=== PATIENT | female | born 1995 | race Caucasian/White ===

== ENCOUNTER 2024-05-16 15:36 | Emergency (ER) | payer OTHER ==
[2024-05-16 15:53] VITALS: RESP 16
--- NOTE | 2024-05-16 16:04 | ED ---
Nausea/Vomiting/Diarrhea HPI - General Chief complaint: Nausea/Vomiting/Diarrhea Stated complaint: NVD/27 Weeks Time Seen by Provider: 05/16/24 15:57 Source: patient, RN notes reviewed Mode of arrival: ambulatory Limitations: no limitations - History of Present Illness Initial comments: This is a 28-year-old female [id number] female at 27 weeks gestation presenting to the emergency department for complaint of nausea, vomiting, diarrhea over the past 16 hours. Patient states that symptoms started at 12:00 this morning and is concerned that she may be dehydrated. Endorses chills with no reported fevers. Denies vaginal bleeding, discharge, dysuria, hematuria, flank pain, cough, rhinorrhea, congestion, shortness of breath, heart palpitations, chest pa in. 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 She denies hematochezia, melena, mucus stools, hematemesis. - Related Data Previous Rx's Medication Instructions Recorded Erythromycin Ophth Oint [Romycin 1 applic RIGHT EYE TID #1 tube 03/05/15 Ophth Oint] Allergies Allergy/AdvReac Type Severity Reaction Status Date / Time butorphanol [From Stadol] Allergy Unknown Verified 05/16/24 15:53 Review of Systems ROS Statement: Those systems with pertinent positive or pertinent negative responses have been documented in the HPI. ROS Other: All systems not noted in ROS Statement are negative. Past Medical History Past Medical History: No Reported History History of Any Multi-Drug Resistant Organisms: None Reported Past Surgical History: No Surgical Hx Reported Past Psychological History: No Psychological Hx Reported Smoking Status: Never smoker Past Alcohol Use History: None Reported Past Drug Use History: None Reported General Exam Limitations: no limitations Respiratory exam: Present: normal lung sounds bilaterally. Absent: respiratory distress, wheezes, rales, rhonchi, stridor Cardiovascular Exam: Present: regular rate, normal rhythm, normal heart sounds. Absent: systolic murmur, diastolic murmur, rubs, gallop, clicks GI/Abdominal exam: Present: soft, normal bowel sounds. Absent: distended, tenderness, guarding, rebound, rigid Extremities exam: Present: normal inspection, full ROM, normal capillary refill. Absent: tenderness, pedal edema, joint swelling, calf tenderness Back exam: Present: normal inspection Course Vital Signs 05/16/24 05/16/24 15:51 18:13 Temperature 98.4 F 98.9 F Pulse Rate 116 H 95 Respiratory 16 16 Rate Blood Pressure 133/94 130/80 O2 Sat by Pulse 97 99 Oximetry Medical Decision Making - Medical Decision Making Was pt. sent in by a medical professional or institution (, [facility], MACHINE PRESSER, urgent care, hospital, or assisted...) When possible be specific @ -No Did you speak to anyone other than the patient for history (EMS, parent, family, police, friend...)? What history was obtained from this source @ -No Did you review nursing and triage notes (agree or disagree)? Why? @ -I reviewed and agree with nursing and triage notes Were old charts reviewed (outside hosp., previous admission, EMS record, old EKG, old radiological studies, urgent care reports/EKG's, assisted records)? Report findings @ -No old charts were reviewed Differential Diagnosis (chest pain, altered mental status, abdominal pain women, abdominal pain men, vaginal bleeding, weakness, fever, dyspnea, syncope, headache, dizziness, GI bleed, back pain, seizure, CVA, palpatations, mental health, musculoskeletal)? @ -Differential Abdominal Pain Women: Appendicitis, Cholecystitis, diverticulosis, ischemic bowel, pancreatitis, hepatitis, UTI, gastroenteritis, AAA, incarcerated hernia, bowel obstruction, constipation, inflammatory bowel, hepatitis, peptic ulcer disease, splenic infarction, perforated viscus, vulvitis, ovarian torsion, PID, kidney stone, placenta abruption, this is not meant to be an all-inclusive list EKG interpreted by me (3pts min.). @ -none X-rays interpreted by me (1pt min.). @ -None done CT interpreted by me (1pt min.). @ -None done U/S interpreted by me (1pt. min.). @ -None done What testing was considered but not performed or refused? (CT, X-rays, U/S, labs)? Why? @ -None What meds were considered but not given or refused? Why? @ -None Did you discuss the management of the patient with other professionals (professionals i.e. [facility] Restrepo, MACHINE PRESSER, lab, RT, psych nurse, social work instructor, rehab aid, teacher, diplomatic officer, supervisor case loading)? Give summary @ -No Was smoking cessation discussed for >3mins.? @ -No Was critical care preformed (if so, how long)? @ -No Were there social determinants of health that impacted care today? How? (Homelessness, low income, unemployed, alcoholism, drug addiction, transportation, low edu. Level, literacy, decrease access to med. care, correction, rehab)? @ -No Was there de-escalation of care discussed even if they declined (Discuss DNR or withdrawal of care, Hospice)? DNR status @ -No What co-morbidities impacted this encounter? (DM, HTN, Smoking, COPD, CAD, Cancer, CVA, ARF, Chemo, Hep., AIDS, mental health diagnosis, sleep apnea, morbid obesity)? @ -None Was patient admitted / discharged? Hospital course, mention meds given and route, prescriptions, significant lab abnormalities, going to OR and other pertinent info. @ -Discharge. 28-year-old female presenting at 27 weeks gestation with nausea, vomiting, diarrhea. My evaluation the patient is resting company no signs acute distress. Vital stable. She is nontoxic and well-appearing. She is offered antiemetics and was declined. She is provided with 1500 mL fluids pending labs. There is leukocytosis 16.1 likely reactive secondary to episodes of emesis and diarrhea. Urinalysis markable for 4+ ketones consistent with dehydration however no signs of infection with 18 epithelial cells consistent with lamination rather than infection. Viral testing is negative. On reevaluation after fluids patient states that she is feeling well and is again declined antiemetics. Recommend that patient follow liquid diet and increase fluids follow-up as scheduled with OB for further evaluation. Case discussed with Dr. Hancock Undiagnosed new problem with uncertain prognosis? @ -No Drug Therapy requiring intensive monitoring for toxicity (Heparin, Nitro, Insulin, Cardizem)? @ -No Were any procedures done? @ -No Diagnosis/symptom? @ -Nausea, vomiting, diarrhea, dehydration Acute, or Chronic, or Acute on Chronic? @ -Acute Uncomplicated (without systemic symptoms) or Complicated (systemic symptoms)? @ -Uncomplicated Side effects of treatment? @ -No Exacerbation, Progression, or Severe Exacerbation? @ -No Poses a threat to life or bodily function? How? (Chest pain, [place], [place], pneumonia, PE, COPD, DKA, ARF, appy, cholecystitis, CVA, Diverticulitis, Homicidal, Suicidal, threat to staff... and all critical care pts) @ -No - Lab Data Result diagrams: 05/16/24 16:40 05/16/24 16:40 Lab Results 05/16/24 05/16/24 05/16/24 Range/Units 16:40 16:40 16:40 WBC 16.1 H (3.8-10.6) k/uL RBC 3.86 (3.80-5.40) m/uL Hgb 12.2 (11.4-16.0) gm/dL Hct 35.4 (34.0-46.0) % MCV 91.7 (80.0-100.0) fL MCH 31.6 (25.0-35.0) pg MCHC 34.4 (31.0-37.0) g/dL RDW 13.1 (11.5-15.5) % Plt Count 360 (150-450) k/uL MPV 7.2 Neutrophils % 86 % Lymphocytes % 7 % Monocytes % 5 % Eosinophils % 1 % Basophils % 0 % Neutrophils # 13.9 H (1.3-7.7) k/uL Lymphocytes # 1.1 (1.0-4.8) k/uL Monocytes # 0.8 (0-1.0) k/uL Eosinophils # 0.1 (0-0.7) k/uL Basophils # 0.0 (0-0.2) k/uL Sodium 134 L (137-145) mmol/L Potassium 3.4 L (3.5-5.1) mmol/L Chloride 100 (98-107) mmol/L Carbon Dioxide 23 (22-30) mmol/L Anion Gap 11 mmol/L BUN 8 (7-17) mg/dL Creatinine 0.66 (0.52-1.04) mg/dL Est GFR (CKD-EPI)AfAm >90 (>60 ml/min/1.73 sqM) Est GFR (CKD-EPI)NonAf >90 (>60 ml/min/1.73 sqM) Glucose 90 (74-99) mg/dL Calcium 8.8 (8.4-10.2) mg/dL Total Bilirubin 0.5 (0.2-1.3) mg/dL AST 20 (14-36) U/L ALT 14 (4-34) U/L Alkaline Phosphatase 115 (38-126) U/L Total Protein 6.9 (6.3-8.2) g/dL Albumin 3.7 (3.5-5.0) g/dL Urine Color Urine Appearance (Clear) Urine pH (5.0-8.0) Ur Specific [place] (1.001-1.035) Urine Protein (Negative) Urine Glucose (UA) (Negative) Urine Ketones (Negative) Urine Blood (Negative) Urine Nitrite (Negative) Urine Bilirubin (Negative) Urine Urobilinogen (<2.0) mg/dL Ur Leukocyte Esterase (Negative) Urine RBC (0-5) /hpf Urine WBC (0-5) /hpf Ur Squamous Epith Cells (0-4) /hpf Urine Bacteria (None) /hpf Hyaline Casts (0-2) /lpf Urine Mucus (None) /hpf Influenza Type A (PCR) Not Detected (Not Detectd) Influenza Type B (PCR) Not Detected (Not Detectd) RSV (PCR) Not Detected (Not Detectd) SARS-CoV-2 (PCR) Not Detected (Not Detectd) 05/16/24 Range/Units 17:14 WBC (3.8-10.6) k/uL RBC (3.80-5.40) m/uL Hgb (11.4-16.0) gm/dL Hct (34.0-46.0) % MCV (80.0-100.0) fL MCH (25.0-35.0) pg MCHC (31.0-37.0) g/dL RDW (11.5-15.5) % Plt Count (150-450) k/uL MPV Neutrophils % % Lymphocytes % % Monocytes % % Eosinophils % % Basophils % % Neutrophils # (1.3-7.7) k/uL Lymphocytes # (1.0-4.8) k/uL Monocytes # (0-1.0) k/uL Eosinophils # (0-0.7) k/uL Basophils # (0-0.2) k/uL Sodium (137-145) mmol/L Potassium (3.5-5.1) mmol/L Chloride (98-107) mmol/L Carbon Dioxide (22-30) mmol/L Anion Gap mmol/L BUN (7-17) mg/dL Creatinine (0.52-1.04) mg/dL Est GFR (CKD-EPI)AfAm (>60 ml/min/1.73 sqM) Est GFR (CKD-EPI)NonAf (>60 ml/min/1.73 sqM) Glucose (74-99) mg/dL Calcium (8.4-10.2) mg/dL Total Bilirubin (0.2-1.3) mg/dL AST (14-36) U/L ALT (4-34) U/L Alkaline Phosphatase (38-126) U/L Total Protein (6.3-8.2) g/dL Albumin (3.5-5.0) g/dL Urine Color Yellow Urine Appearance Cloudy H (Clear) Urine pH 6.5 (5.0-8.0) Ur Specific [place] 1.026 (1.001-1.035) Urine Protein 1+ H (Negative) Urine Glucose (UA) Negative (Negative) Urine Ketones 4+ H (Negative) Urine Blood Negative (Negative) Urine Nitrite Negative (Negative) Urine Bilirubin Negative (Negative) Urine Urobilinogen <2.0 (<2.0) mg/dL Ur Leukocyte Esterase Small H (Negative) Urine RBC 2 (0-5) /hpf Urine WBC 11 H (0-5) /hpf Ur Squamous Epith Cells 18 H (0-4) /hpf Urine Bacteria Many H (None) /hpf Hyaline Casts 1 (0-2) /lpf Urine Mucus Few H (None) /hpf Influenza Type A (PCR) (Not Detectd) Influenza Type B (PCR) (Not Detectd) RSV (PCR) (Not Detectd) SARS-CoV-2 (PCR) (Not Detectd) Disposition Clinical Impression: Gastroenteritis Disposition: HOME SELF-CARE Condition: Good Instructions (If sedation given, give patient instructions): Gastroenteritis (ED) Additional Instructions: Please return to the Emergency Department if symptoms worsen or any other concerns. Is patient prescribed a controlled substance at d/c from ED?: No Referrals: Sarabjit Duque MD [Primary Care Provider] - 1-2 days Time of Disposition: 17:59
[2024-05-16] MEDS: SODIUM CHLORIDE 0.9% 1,500 ML IV STA (16:31)
[2024-05-16 17:03] LABS: Basophils % (A) 0 %; Eosinophils # (A) 0.1 k/uL (0-0.7); Eosinophils % (A) 1 %; HCT 35.4 % (34.0-46.0); HGB 12.2 gm/dL (11.4-16.0); Lymphocytes # (A) 1.1 k/uL (1.0-4.8); Lymphocytes % (A) 7 %; MCH 31.6 pg (25.0-35.0); MCHC 34.4 g/dL (31.0-37.0); MCV 91.7 fL (80.0-100.0); Mean Platelet Volume 7.2; Monocytes # (A) 0.8 k/uL (0-1.0); Monocytes % (A) 5 %; Neutrophils # (A) 13.9 k/uL (1.3-7.7); Neutrophils % (A) 86 %; Platelet Count 360 k/uL (150-450); RBC 3.86 m/uL (3.80-5.40); RDW 13.1 % (11.5-15.5); WBC 16.1 k/uL (3.8-10.6)
[2024-05-16 17:10] LABS: ALT 14 U/L (4-34); AST 20 U/L (14-36); African American GFR (CKD) >90 (>60 ml/min/1.73 sqM); Albumin 3.7 g/dL (3.5-5.0); Alkaline Phosphatase 115 U/L (38-126); Anion Gap 11 mmol/L; Blood Urea Nitrogen 8 mg/dL (7-17); Calcium 8.8 mg/dL (8.4-10.2); Carbon Dioxide 23 mmol/L (22-30); Chloride 100 mmol/L (98-107); Glucose 90 mg/dL (74-99); Non-African American GFR(CKD) >90 (>60 ml/min/1.73 sqM); Potassium 3.4 mmol/L (3.5-5.1); Sodium 134 mmol/L (137-145); Total Bilirubin 0.5 mg/dL (0.2-1.3); Total Protein 6.9 g/dL (6.3-8.2)
[2024-05-16 17:31] LABS: Appearance,Urine Cloudy (Clear); Bacteria,Urine Many /hpf; Bilirubin,Urine Negative (Negative); Blood,Urine Negative (Negative); Color,Urine Yellow; Glucose,Urine (UA) Negative (Negative); Hyaline Casts,Urine 1 /lpf (0-2); Ketones,Urine 4+ (Negative); Leukocyte Esterase,Urine Small (Negative); Mucus,Urine Few /hpf; Nitrite,Urine Negative (Negative); PH, Urine 6.5 (5.0-8.0); Protein,Urine 1+ (Negative); RBC,Urine 2 /hpf (0-5); Specific Gravity,Urine 1.026 (1.001-1.035); Squamous Epithelial Cell,Urine 18 /hpf (0-4); Urobilinogen,Urine <2.0 mg/dL (<2.0); WBC,Urine 11 /hpf (0-5)
[2024-05-16 17:38] LABS: Influenza A Not Detected (Not Detectd); Influenza B Not Detected (Not Detectd); RSV Not Detected (Not Detectd)
[2024-05-16 18:14] VITALS: BP 130/80; PULSE 95; TEMP 98.9
== END 2024-05-16 18:14 | disposition home or self-care (01) ==
LOC: EC 15:36
DX: O99.612 Diseases of the digestive system complicating pregnancy, second trimester (principal); K52.9 Noninfective gastroenteritis and colitis, unspecified; O21.2 Late vomiting of pregnancy; Z88.8 Allergy status to other drugs, medicaments and biological substances; Z3A.27 27 weeks gestation of pregnancy; Z11.52 Encounter for screening for COVID-19
CPT/HCPCS: 36415; 80053; 81001; 85025; 87636; 96360; 99283

== ENCOUNTER 2024-07-24 09:24 | Outpatient (CLI) | payer OTHER ==
[2024-07-24 10:25] VITALS: BP 126/79; PULSE 94; RESP 18; TEMP 96.3
--- NOTE | 2024-08-06 20:42 | P.MSEPDOC ---
Presenting Problems - Arrival Data Date of Arrival on Unit: 07/24/24 Time of Arrival on Unit: 09:25 Mode of Transport: Ambulatory - Complaint OB-Reason for Admission/Chief Complaint: Possible Onset of Labor Comment: contractions every 10 minutes since 1600 yesterday Medical History - Information : 2 Para: 1 Term: 1 : 0 Abortions: Spontaneous or Elective: 0 Number of Living Children: 1 - Gestational Age Gestational Age by ROMULO (wks/days): 37 Weeks and 3 Days Review of Systems - Review of Systems Constitutional: No problems Breast: No problems ENT: No problems Cardiovascular: No problems Respiratory: No problems Gastrointestinal: No problems Genitourinary: No problems Musculoskeletal: No problems Neurological: No problems Skin: No problems Vital Signs - Temperature Temperature: 96.3 F Temperature Source: Temporal Artery Scan - Pulse Right Brachial Pulse Rate: 94 Pulse Assessment Method: Automatic Cuff - Respirations Respiratory Rate: 18 Oxygen Delivery Method: Room Air O2 Sat by Pulse Oximetry: 98 - Blood Pressure Right Arm Blood Pressure: 126/79 Blood Pressure Mean: 94 Blood Pressure Source: Automatic Cuff Medical Screen Scoring - Cervical Exam Dilation (cm): 0 Effacement (%): 0 Station: -3 Membranes: Intact - Uterine Contractions Frequency From (mins): 4 Frequency To (mins): 10 Duration From (seconds): 40 Duration To (seconds): 60 Intensity: Mild Resting: Soft to palpation - Assessment - Baby A Baseline FHR: 135 Heart Rate - NICHD Category: Category I (Normal) NST: Reactive Physician Notification - Physician Notified Physician Notified Date: 07/24/24 Physician Notified Time: 10:15 Physician: Zelalem Mccray New Order Received: Yes - Notification Comment Comment: D/C Home Maternal Triage Index - Maternal Triage Index Presenting for scheduled procedure w/no complaint: No - Stat/Priority 1 Stat Priority 1: No - Urgent/Priority 2 Urgent Priority 2: No - Prompt/Priority 3 Prompt Priority 3: No - Non-Urgent/Priority 4 Non-Urgent Priority 4: Yes Criteria Met for Priority 4: contractions every 4-[address] Mccray in dept and reviewed strip Disposition - Disposition OB Disposition: Discharge to home Discharge Date: 07/24/24 Discharge Time: 10:22 I agree with the RN Medical Screening Exam: Yes Case reviewed; plan agreed upon as documented in EMR&OBIX.: Yes Diagnosis: FALSE LABOR AT OR AFTER 37 COMPLETED WEEKS OF GESTATION
== END 2024-07-24 10:22 | disposition home or self-care (01) ==
LOC: FBPOP 09:24
PROVIDERS: ATTEND Obstetrics & Gynecology Obstetrics
DX: O47.1 False labor at or after 37 completed weeks of gestation (principal); Z88.5 Allergy status to narcotic agent; Z3A.37 37 weeks gestation of pregnancy
CPT/HCPCS: 59025; 99213

== ENCOUNTER 2024-08-10 23:15 | Inpatient (IN) | payer OTHER ==
[2024-08-10] MEDS ORDERED: TERBUTALINE 1 MG/ML VIAL SQ PRN (23:41)
[2024-08-10] MEDS ORDERED: miSOPROStoL 200 MCG TAB PO PRN (23:41)
[2024-08-10] MEDS ORDERED: METHYLERGONOVINE 0.2 MG/ML 1 ML AMP IM PRN (23:41)
[2024-08-10] MEDS ORDERED: miSOPROStoL 200 MCG TAB RECTAL PRN (23:41)
[2024-08-10] MEDS ORDERED: OXYTOCIN 10 UNIT/ML 1 ML VIAL IM PRN (23:41)
[2024-08-10] MEDS ORDERED: TRANEXAMIC 1,000 MG/100ML-NACL 1,000 MG in EMPTY BAG 1 BAG IV PRN (23:41)
[2024-08-10] MEDS ORDERED: CARBOPROST TROMETHAMINE 250 MCG/ML 1 ML AMP IM PRN (23:41)
[2024-08-11] MEDS: LACTATED RINGERS 1,000 ML IV SCH (00:04)
[2024-08-11 00:10] LABS: Basophils # (A) 0.08 10*3/uL (0.00-0.10); Basophils % (A) 0.6 %; Eosinophils # (A) 0.09 10*3/uL (0.04-0.35); Eosinophils % (A) 0.6 %; HCT 35.3 % (37.2-46.3); HGB 12.3 g/dL (12.0-15.0); Lymphocytes # (A) 2.41 10*3/uL (0.90-5.00); Lymphocytes % (A) 16.7 %; MCH 31.1 pg (27.0-32.0); MCHC 34.8 g/dL (32.0-37.0); MCV 89.1 fL (80.0-97.0); Mean Platelet Volume 9.5 fL (9.5-12.2); Monocytes # (A) 1.36 10*3/uL (0.20-1.00); Monocytes % (A) 9.4 %; Neutrophils # (A) 10.38 10*3/uL (1.80-7.70); Neutrophils % (A) 72.1 %; Platelet Count 363 10*3/uL (140-440); RBC 3.96 10*6/uL (4.10-5.20); RDW 13.2 % (11.5-14.5)
[2024-08-11] MEDS: AMPICILLIN 2,000 MG in SODIUM CHLORIDE 0.9% 100 ML IVPB STA (00:24)
[2024-08-11] MEDS: OXYTOCIN 30 UNITS/500 ML NS 30 UNIT in SALINE 1 500ML.BAG IV SCH (04:34)
--- NOTE | 2024-08-11 04:54 | P.HPOB ---
History of Present Illness H&P Date: 08/11/24 Chief Complaint: Contractions, leaking of fluid Ms. Cox is a 29 year old at 40 weeks and 0 days with ROMULO of 4-15-25 by LMP who presents to L&D after SROM at 2300 revealing meconium-stained fluid. On arrival she was damion every 2-4 minutes. Her has been essentially uncomplicated. Obstetric history: 1 FTVD, no complications, girl, 7#7oz (2013) work-up: blood type A negative, antibody screen negative (s/p rhogam at 28 weeks), rubella immune, VDRL non-reactive, HbsAg negative, HIV negative, gonorrhea negative, chlamydia negative, 1 hour GTT wnl, GBS positive. Past Medical History Past Medical History: No Reported History History of Any Multi-Drug Resistant Organisms: None Reported Past Surgical History: No Surgical Hx Reported Past Psychological History: No Psychological Hx Reported Smoking Status: Never smoker Past Alcohol Use History: None Reported Past Drug Use History: None Reported Medications and Allergies Home Medications Medication Instructions Recorded Confirmed Type Calcium Carbonate [Tums] 500 mg PO TID 07/24/24 07/24/24 History Cetirizine HCl [Zyrtec] 5 mg PO DAILY 07/24/24 08/10/24 History Vit No.179/Iron/Folic 1 each PO DAILY 07/24/24 08/10/24 History [ Tablet] Allergies Allergy/AdvReac Type Severity Reaction Status Date / Time butorphanol [From Stadol] Allergy Unknown Verified 07/24/24 09:44 Exam Vital Signs Temp Pulse Resp BP Pulse Ox 08/11/24 00:00 96.3 F L 97 16 123/85 100 08/10/24 23:26 97.6 F 101 H 16 140/96 98 Intake and Output 08/10/24 08/10/24 08/11/24 14:59 22:59 06:59 Other: Weight 113.852 kg Focused physical exam is performed. This is a healthy-appearing in no apparent distress. Breathing is non-labored. Abdomen is gravid and non-tender. Cervical exam is 3/80/-2 per OB RN. Membranes ruptured with positive amnisure. Extremities non-tender and non-edematous. heart tones are Category I and tocometer is graphing contractions every 2-4 minutes. Results Result Diagrams: 08/10/24 23:41 Abnormal Lab Results - Last 24 Hours (Table) 08/10/24 Range/Units 23:41 WBC 14.40 H (4.50-10.00) 10*3/uL RBC 3.96 L (4.10-5.20) 10*6/uL Hct 35.3 L (37.2-46.3) % Immature Gran # 0.08 H (0.00-0.04) 10*3/uL Neutrophils # 10.38 H (1.80-7.70) 10*3/uL Monocytes # 1.36 H (0.20-1.00) 10*3/uL Assessment and Plan Assessment: 29 year old at 40 weeks gestation with SROM in labor Plan: Admit, clear liquid diet, continuous EFM and tocometer, Ampicillin for GBS ppx, anticipate vaginal delivery
[2024-08-11] MEDS ORDERED: SIMETHICONE 80 MG CHEWABLE PO PRN (04:56)
[2024-08-11] MEDS ORDERED: HYDROCORTISONE 2.5% RECTAL CREAM 30 GM TUBE RECTAL PRN (04:56)
[2024-08-11] MEDS ORDERED: diphenhydrAMINE 50 MG CAP PO PRN (04:56)
[2024-08-11] MEDS ORDERED: diphenhydrAMINE 50 MG/ML 1 ML VIAL IVP PRN ×2 (04:56)
[2024-08-11] MEDS ORDERED: BENZOCAINE/MENTHOL SPRAY 1 GM/SPRAY AEROSOL TOPICAL PRN (04:56)
[2024-08-11] MEDS ORDERED: diphenhydrAMINE 25 MG CAP PO PRN (04:56)
[2024-08-11] MEDS ORDERED: ZOLPIDEM 5 MG TAB PO PRN (04:56)
[2024-08-11] MEDS ORDERED: LANOLIN CREAM 1 GM TUBE TOPICAL PRN (04:56)
--- NOTE | 2024-08-11 04:56 | P.PROBDLV ---
Vaginal Delivery Note - . Vaginal Delivery Note: DATE OF SERVICE: 08/11/2024 PROCEDURE: Normal Vaginal Delivery ATTENDING: Dr. Maddie Peñaloza MD ESTIMATED BLOOD LOSS: 200 mL FINDINGS: VMI, Apgars 8/9. Weight 8 pounds and 14 ounces (4030 grams) PROCEDURE: Ms. Montez is a 29 year old at 40 weeks presenting to labor and delivery in labor with ruptured membranes. For further details, please review the admitting H&P. The patient was completely dilated at 400. She pushed effectively with Category I to II FHTs. A viable male infant was delivered at 429. The infant was placed on the maternal abdomen and bulb suctioned. The was noted to be spontaneously crying. Cord was clamped and cut after a 60-second delay. The infant was handed off to the pediatric team. Placenta was delivered whole with gentle cord traction at 434. Oxytocin was started to facilitate uterine tone. Uterine fundus was found to be firm and below the umbilicus upon fundal massage. Thorough examination of the cervix, vagina, periurethral area, and perineum revealed a second degree perineal laceration. The area was infiltrated with lidocaine and repaired with 2-0 Vicryl in the usual fashion. The patient is stable and allowed to begin the bonding process.
[2024-08-11] MEDS: LIDOCAINE 0.5% (PF) 5 MG/ML (50 ML SDV) SQ PRN (05:16)
[2024-08-11] MEDS: AMPICILLIN 1,000 MG in SODIUM CHLORIDE 0.9% 50 ML IVPB SCH (06:18)
[2024-08-11] MEDS: ACETAMINOPHEN TAB 500 MG TAB PO SCH (08:21)
[2024-08-11] MEDS: IBUPROFEN 800 MG TAB PO SCH (08:21)
[2024-08-11] MEDS: SENNOSIDES-DOCUSATE SODIUM 1 EACH TAB PO SCH (08:21)
[2024-08-11] MEDS: Rhogam IMMUNE GLOBULIN 1,500 UNIT/1 ML IM ONE ×2 (08:56→11:37)
[2024-08-12 00:50] VITALS: RESP 16; TEMP 97.7
[2024-08-12 05:24] LABS: Basophils # (A) 0.12 10*3/uL (0.00-0.10); Basophils % (A) 0.7 %; Eosinophils # (A) 0.13 10*3/uL (0.04-0.35); Eosinophils % (A) 0.8 %; HCT 31.3 % (37.2-46.3); HGB 10.5 g/dL (12.0-15.0); Lymphocytes # (A) 2.87 10*3/uL (0.90-5.00); Lymphocytes % (A) 17.7 %; MCH 30.5 pg (27.0-32.0); MCHC 33.5 g/dL (32.0-37.0); Mean Platelet Volume 9.5 fL (9.5-12.2); Monocytes # (A) 1.74 10*3/uL (0.20-1.00); Monocytes % (A) 10.8 %; Neutrophils # (A) 11.19 10*3/uL (1.80-7.70); Neutrophils % (A) 69.3 %; Platelet Count 285 10*3/uL (140-440); RBC 3.44 10*6/uL (4.10-5.20); RDW 13.7 % (11.5-14.5); WBC 16.17 10*3/uL (4.50-10.00)
[2024-08-12 07:54] VITALS: BP 133/85; PULSE 62
--- NOTE | 2024-08-12 07:55 | P.DS ---
Providers Date of admission: 08/10/24 23:29 Expected date of discharge: 08/12/24 Attending physician: Rosa Russell Primary care physician: Stated None - Discharge Diagnosis(es) (1) (normal spontaneous vaginal delivery) Current Visit: Yes Status: Acute Hospital Course: Patient presented in active labor. She underwent a normal vaginal delivery. Po stpartum course has been uneventful. She denies nausea, vomiting, chest pain, shortness of breath or calf pain. Patient will be discharged home day #1 in stable condition to follow-up with me in 6 weeks. Plan - Discharge Summary New Discharge Prescriptions: No Action Vit No.179/Iron/Folic [ Tablet] 1 each PO DAILY Cetirizine HCl [Zyrtec] 5 mg PO DAILY Calcium Carbonate [Tums] 500 mg PO TID Discharge Medication List Calcium Carbonate [Tums] 500 mg PO TID 07/24/24 [History] Cetirizine HCl [Zyrtec] 5 mg PO DAILY 07/24/24 [History] Vit No.179/Iron/Folic [ Tablet] 1 each PO DAILY 07/24/24 [History] Follow up Appointment(s)/Referral(s): Rosa Russell DO [Doctor of Osteopathic Medicine] - 09/22/24 10:45 am Discharge Disposition: HOME SELF-CARE
== END 2024-08-12 11:00 | disposition home or self-care (01) | DRG 807 ==
LOC: FBPOP 23:15 → 4FBP 23:29
PROVIDERS: ADMIT Obstetrics & Gynecology; ATTEND Obstetrics & Gynecology
PROC: 3E0234Z Introduction of Serum, Toxoid and Vaccine into Muscle, Percutaneous Approach (ICD-10-PCS; principal; 2024-08-11)
PROC: 0KQM0ZZ Repair Perineum Muscle, Open Approach (ICD-10-PCS; principal; 2024-08-11)
PROC: 10E0XZZ Delivery of Products of Conception, External Approach (ICD-10-PCS; principal; 2024-08-11)
DX: O77.0 Labor and delivery complicated by meconium in amniotic fluid (principal); O26.893 Other specified pregnancy related conditions, third trimester; O99.824 Streptococcus B carrier state complicating childbirth; O70.1 Second degree perineal laceration during delivery; Z79.899 Other long term (current) drug therapy; Z88.5 Allergy status to narcotic agent; Z67.11 Type A blood, Rh negative; Z3A.40 40 weeks gestation of pregnancy; Z37.0 Single live birth
CPT/HCPCS: 59025; 84112; 85025; 85461; 86850; 86900; 86901; 99213